=== PATIENT | male | born 1965 | race Caucasian/White ===

== ENCOUNTER 2018-06-02 14:55 | Emergency (ER) | payer OTHER, SELFPAY ==
[2018-06-02 15:00] VITALS: BP 154/81; PULSE 85; RESP 20; TEMP 36.8; O2SAT 94
--- NOTE | 2018-06-02 15:01 | DI.RPTCT_ITS ---
SYMPTOM/DIAGNOSIS: TRAUMA TO RIGHT SUPERIOR ASPECT OF HEAD NONCONTRAST HEAD CT: No intracranial hemorrhage or skull fracture is seen. There is a large laceration in the soft tissues of the right frontal scalp. No foreign body is identified. The ventricles are normal in size. The visualized portions of the sinuses show mild mucosal thickening. Mastoid air cells appear clear. IMPRESSION: Large right frontal scalp laceration. No skull fracture or acute intracranial abnormality. CT CERVICAL SPINE: There is no evidence of fracture. There are degenerative changes of the facet joints at C-2,3 on the left and C7- T1 on the right. There are degenerative disc changes at C5-6 and C6-7. There is slight reversal of the normal cervical lordosis at these levels related to degenerative change. IMPRESSION: Degenerative changes. No acute abnormality.
--- NOTE | 2018-06-02 15:21 | ED.GENADUL ---
Disposition Clinical Impression: Traumatic injury of head, Laceration of head Disposition: HOME Condition: Stable Instructions: Laceration (ED), Head Injury (ED) Additional Instructions: Return immediately for any severe headaches, neurological changes, any signs of wound infection. Otherwise keep wound clean and dry and return in 7 days to the emergency department for suture removal otherwise keep your appointment later this week with your primary care provider for reassessment. Prescriptions: Amoxicillin 500 mg PO Q8H #9 capsule Referrals: [facility] Emergency Dept. [Outside] - 1 week (Return to emergency department 7 days for suture removal) [facility] [Outside] (Keep your appointment as scheduled for later this week) Medical Decision Making - Radiology Data Radiology results: report reviewed, image reviewed - Medical Decision Making Patient presenting to the emergency department for blunt trauma to the right superior aspect of the scalp after a 4-5 cm tree limb struck him in the head. Patient has significant amount of bleeding to the scalp but denies any neck pain, patient is not intoxicated and denies any EtOH. Due to significant size and mechanism injury do feel the patient needs head and C-spine CT imaging. Bleeding is controlled at this time but significant amount of blood is noted to patient's face and shirt. Physical exam is unremarkable for any cervical spinal tenderness, or other traumatic physical exam findings. Patient is otherwise stable. After review of radiological imaging and radiologist interpretation patient gave verbal consent for wound closure. Please see closure note. Wound was explored to base in bloodless field and shows a intact galea. There was mild wound revision performed. Wound was closed with well approximation of edges. Sewaren were mostly used but in one area of irregularity I did use Vicryl for wound closure. Patient encouraged to return for any new or worsening symptoms otherwise to return in 7 days for removal of bhavani. Due to some contamination patient was placed on antibiotics for prophylactic coverage. After discussion of diagnosis and plan of care with patient patient agreed and stated no further needs, questions, or concerns at this time. History of Present Illness - General Chief complaint: Trauma Stated complaint: HEAD INJURY Time Seen by Provider: 06/02/18 14:57 Source: patient, RN notes reviewed Mode of arrival: ambulatory Limitations: no limitations - History of Present Illness Initial comments: Patient reports approximately 20 minutes prior to arrival he was cutting down a tree and the branch came around its and swung and hit him on the top of the head. He states that it was approximately 4-5 inches in diameter. He is coming in because he has significant laceration of the top of his head but he states a moderate headache, and some nausea but he denies any loss of consciousness, neck pain, syncope, neurological deficit. Onset/Timin -: minutes(s) Location: head Severity scale (1-10): 6 Quality: aching Consistency: constant Improves with: none Worsens with: none Treatments Prior to Arrival: none - Related Data Bupropion HCl [Bupropion Xl] 300 mg PO DAILY tab-cap 03/26/18 Cholecalciferol (Vitamin D3) [Vitamin D3] 1,000 unit PO DAILY 03/26/18 Clonidine HCl 0.1 mg PO BID tab-cap 03/26/18 Esomeprazole Magnesium 40 mg PO DAILY 03/26/18 GlipiZIDE [Glucotrol] 5 mg PO DAILY tab-cap 03/26/18 Hydrophilic Cream [Kerodex 71] 113 gm TP 03/26/18 Insulin Glargine [Lantus Solostar] DAILY 03/26/18 Levothyroxine [Levothroid] 0.15 mcg PO 03/26/18 Loratadine [Claritin] 10 mg PO DAILY tab-cap 03/26/18 Metformin HCl 1,000 mg PO BID tab-cap 03/26/18 Naproxen 500 mg PO BID tab-cap 03/26/18 Oxycodone HCl 5 mg PO BID tab-cap 03/26/18 Prazosin HCl 8 mg PO DAILY 03/26/18 Pregabalin [Lyrica] 50 mg PO DAILY 03/26/18 Sertraline HCl 50 mg PO DAILY tab-cap 03/26/18 Tiotropium [Spiriva Handihaler] 18 mcg IH DAILY tab-cap 03/26/18 Zolpidem [Ambien] 5 mg PO DAILY 03/26/18 Amoxicillin 500 mg PO Q8H #9 capsule 06/02/18 Allergies Allergy/AdvReac Type Severity Reaction Status Date / Time adhesive tape Allergy Unknown Unverified 04/10/18 12:52 Review of Systems Constitutional: denies: chills, fever Eyes: denies: eye pain, eye discharge ENT: denies: ear pain, epistaxis Respiratory: denies: cough, shortness of breath Cardiovascular: denies: chest pain, palpitations, syncope Gastrointestinal: nausea. denies: vomiting Musculoskeletal: denies: back pain Neurological: as per HPI, headache. denies: weakness, numbness, paresthesias, confusion, abnormal gait, vertigo Past Medical History - Past Medical History Medical history: diabetes, hypertension Degenerative cervical disease, liver disease, restless leg syndrome, sleep apnea Surgical history: other (Left testicle removal, dental surgeries) - Social History Smoking status: current everyday smoker Alcohol use: none. denies: heavy Drug use: none Living Situation: lives with family General Exam - General Limitations: no limitations General appearance: alert, in no apparent distress - Expanded Head Exam No standard instances Head exam: Present: laceration (Patient has a significant 12 cm laceration to the frontal and mostly on the parietal aspect of the right side of the scalp. No obvious skull depression or crepitus is noted. ). Absent: hematoma, racoon eyes, wyatt's sign, general tenderness, tenderness of temporal artery, CSF rhinorrhea, CSF otorrhea - Eye Eye exam: Present: normal apperance, PERRL, EOMI. Absent: scleral icterus, conjunctival injection, nystagmus, periorbital swelling, periorbital tenderness Pupils: Present: normal accommodation - ENT ENT exam: Present: normal exam, normal orophraynx, mucous membranes moist, TM's normal bilaterally, normal external ear exam - Neck Neck exam: Present: normal inspection, full ROM. Absent: tenderness, meningismus - Respiratory Respiratory exam: Present: normal lung sounds bilaterally. Absent: respiratory distress, wheezes, rales, rhonchi, stridor, chest wall tenderness, decreased breath sounds - Cardiovascular Cardiovascular Exam: Present: regular rate, normal rhythm, normal heart sounds - Back Exam Back exam: Absent: vertebral tenderness - Neurological Exam Neurological exam: Present: alert, oriented X3, CN II-XII intact, normal gait. Absent: altered, motor sensory deficit - Skin Skin exam: Present: warm, dry Course Vital Signs - 24 hr 06/02/18 15:00 Temperature 36.8 C Pulse 85 Respiratory 20 Rate Blood Pressure 154/81 Pulse Oximetry 94 L Procedures - Laceration Repair Copious Irrigation performed: Yes Laceration Length (cm): 13 Laceration Depth: Deep Bleeding Type/Amount: Moderate, Bleeding Controlled Complexity: Simple Anesthetic: Lidocaine 1%, With Epi Material: Vicryl Suture Size: 4-0 Suture Number: 3 (12 bhavani also used for wound closure)
--- NOTE | 2018-06-02 16:48 | DI.VRAD_ITS ---
EXAM: CT Head Without Intravenous Contrast CLINICAL HISTORY: 52 years old, male; Signs and symptoms; Other: Trauma to rt. Superior aspect of head; Patient HX: Tree fell on individual's head TECHNIQUE: Axial computed tomography images of the head/brain without intravenous contrast. All CT scans at this facility use at least one of these dose optimization techniques: automated exposure control; mA and/or kV adjustment per patient size (includes targeted exams where dose is matched to clinical indication); or iterative reconstruction. Coronal and sagittal reformatted images were created and reviewed. COMPARISON: No relevant prior studies available. FINDINGS: Brain: Unremarkable. No hemorrhage. No significant white matter disease. No edema. Ventricles: Unremarkable. No ventriculomegaly. Bones/joints: Unremarkable. No acute fracture. Soft tissues: Right frontal scalp laceration. Sinuses: Mild mucosal thickening in the ethmoid sinuses and left sphenoid sinus. No sinus fluid level. Mastoid air cells: Unremarkable as visualized. No mastoid effusion. IMPRESSION: 1. No acute intracranial abnormality. 2. Right frontal scalp laceration. EXAM: CT Cervical Spine Without Intravenous Contrast CLINICAL HISTORY: 52 years old, male; Signs and symptoms; Other: Trauma to rt. Superior aspect of head; Patient HX: Tree fell on individual's head TECHNIQUE: Axial computed tomography images of the cervical spine without intravenous contrast. All CT scans at this facility use at least one of these dose optimization techniques: automated exposure control; mA and/or kV adjustment per patient size (includes targeted exams where dose is matched to clinical indication); or iterative reconstruction. Coronal and sagittal reformatted images were created and reviewed. COMPARISON: MRI - BRAIN W/WO CONTRAST 2011-09-28 18:37 FINDINGS: Vertebrae: Degenerative disc disease and facet arthrosis throughout the cervical spine. Loss of normal cervical lordosis, likely due to splinting. Minimal anterolisthesis of C2 and minimal retrolisthesis of C5, likely degenerative. No fracture is identified. Discs/spinal canal/neural foramina: Inflammatory appearing facet arthrosis and at C2-C3 on the left and C7-T1 on the right. Soft tissues: Unremarkable. Lung apices: Unremarkable as visualized. IMPRESSION: 1. No fracture. 2. Degenerative spondylosis of the cervical spine with probable inflammatory facet arthrosis at C2-C3 on the left and C7-T1 on the right. Dictated and Authenticated by: Sen Christiansen MD. Ordering:SHO SINGH MD
[2018-06-02] MEDS: Amoxicillin 500 MG CAP PO (17:54)
== END 2018-06-02 17:54 | disposition home or self-care (01) ==
PROVIDERS: Emergency Provider Emergency Medicine; PCP Nurse Practitioner
DX: S09.90XA Unspecified injury of head, initial encounter (principal); S01.01XA Laceration without foreign body of scalp, initial encounter; W20.8XXA Other cause of strike by thrown, projected or falling object, initial encounter; Y93.H2 Activity, gardening and landscaping; I10 Essential (primary) hypertension; E11.9 Type 2 diabetes mellitus without complications; Z79.4 Long term (current) use of insulin
CPT/HCPCS: 12005; 90471; 99284; 70450; 72125

== ENCOUNTER 2018-06-09 07:58 | Emergency (ER) | payer OTHER, SELFPAY ==
[2018-06-09 08:07] VITALS: BP 137/77; PULSE 69; RESP 15; TEMP 36.6; O2SAT 99
--- NOTE | 2018-06-09 08:34 | ED.GENADUL ---
Disposition Clinical Impression: Removal of bhavani Disposition: HOME Condition: Improving Instructions: Stitches Removal (ED) Additional Instructions: Please keep wound protected. Please follow-up with your primary care physician. Return to the emergency department immediately for any worsening or new concerning symptoms. Referrals: Marsha Clifton NP [Primary Care Provider] - Medical Decision Making - Medical Decision Making 52-year-old male here 7 days after laceration to scalp requiring primary closure. Wound healing well with no signs of infection. 12 bhavani and 2 absorbable sutures removed by me without complication. Patient advised to keep his wound protected. History of Present Illness - General Chief complaint: SutureRem Stated complaint: SUTURE REMOVAL Time Seen by Provider: 06/09/18 08:25 Source: patient, RN notes reviewed Mode of arrival: ambulatory Limitations: no limitations - History of Present Illness Initial comments: 52-year-old male who sustained laceration to his scalp 7 days ago, was seen here in the emergency department and had primary closure performed with absorbable sutures and bhavani. Wound is been healing well. Patient has no concerns. No rash or fever. Patient is here requesting suture removal. - Related Data Bupropion HCl [Bupropion Xl] 300 mg PO DAILY tab-cap 03/26/18 Cholecalciferol (Vitamin D3) [Vitamin D3] 1,000 unit PO DAILY 03/26/18 Clonidine HCl 0.1 mg PO BID tab-cap 03/26/18 Esomeprazole Magnesium 40 mg PO DAILY 03/26/18 GlipiZIDE [Glucotrol] 5 mg PO DAILY tab-cap 03/26/18 Hydrophilic Cream [Kerodex 71] 113 gm TP 03/26/18 Insulin Glargine [Lantus Solostar] DAILY 03/26/18 Levothyroxine [Levothroid] 0.15 mcg PO DAILY 03/26/18 Loratadine [Claritin] 10 mg PO DAILY tab-cap 03/26/18 Metformin HCl 1,000 mg PO BID tab-cap 03/26/18 Naproxen 500 mg PO BID tab-cap 03/26/18 Oxycodone HCl 5 mg PO BID tab-cap 03/26/18 Prazosin HCl 8 mg PO DAILY 03/26/18 Pregabalin [Lyrica] 50 mg PO DAILY 03/26/18 Sertraline HCl 50 mg PO DAILY tab-cap 03/26/18 Tiotropium [Spiriva Handihaler] 18 mcg IH DAILY tab-cap 03/26/18 Zolpidem [Ambien] 5 mg PO DAILY 03/26/18 Amoxicillin 500 mg PO Q8H #9 capsule 06/02/18 Allergies Allergy/AdvReac Type Severity Reaction Status Date / Time adhesive tape Allergy Unknown Unverified 04/10/18 12:52 Review of Systems Constitutional: denies: chills, fever Skin: as per HPI Past Medical History - Past Medical History Medical history: diabetes, hypertension Degenerative cervical disease, liver disease, restless leg syndrome, sleep apnea Surgical history: other (Left testicle removal, dental surgeries) - Social History Alcohol use: none. denies: heavy Drug use: none General Exam - General Limitations: no limitations General appearance: alert, in no apparent distress - Head Head exam: Present: other (Midline scalp wound with intact bhavani, healing well with granulation tissue, no dehiscence, no erythema, swelling or discharge) - Skin Skin exam: Present: warm, dry, intact, other (As noted above) Course Vital Signs - 24 hr 06/09/18 08:07 Temperature 36.6 C Pulse 69 Respiratory 15 Rate Blood Pressure 137/77 Pulse Oximetry 99
== END 2018-06-09 08:45 | disposition home or self-care (01) ==
PROVIDERS: Emergency Provider Student in an Organized Health Care Education/Training Program; PCP Nurse Practitioner
DX: S01.01XD Laceration without foreign body of scalp, subsequent encounter (principal); W20.8XXD Other cause of strike by thrown, projected or falling object, subsequent encounter; Z48.02 Encounter for removal of sutures

== ENCOUNTER 2024-06-14 18:27 | Emergency (ER) | payer OTHER, SELFPAY ==
[2024-06-14 18:29] VITALS: BP 124/82; PULSE 88; RESP 12; TEMP 36.6; O2SAT 93
--- NOTE | 2024-06-14 18:53 | W.ED.GENAD ---
Discharge Plan Disposition Patient Disposition: Home Condition: Stable Discharge Details Chief Complaint: GenMedical Clinical Impression: COVID Primary Care Provider: Feli,Local ED Provider: Willie Solomon Home Meds and New Rx's Prescriptions: No Action clonidine HCl 0.1 MG tablet 0.1 mg PO BID Rx Instructions: 03/26/18 [facility] levothyroxine 25 MCG tablet 0.15 mcg PO DAILY Rx Instructions: 03/26/18 [facility] metformin 1,000 MG tablet 1,000 mg PO BID Rx Instructions: 03/26/18 [facility] esomeprazole magnesium 40 MG capsule,delayed release(DR/EC) 40 mg PO DAILY Rx Instructions: 03/26/18 [facility] zolpidem 5 MG tablet 5 mg PO DAILY Rx Instructions: 03/26/18 [facility]. May take 2 tabs if needed. sertraline 50 MG tablet 50 mg PO DAILY Rx Instructions: 03/26/18 [facility] loratadine 10 MG tablet 10 mg PO DAILY Rx Instructions: 03/26/18 [facility] prazosin 2 MG capsule 8 mg PO DAILY Rx Instructions: 03/26/18 [facility] naproxen 500 MG tablet 500 mg PO BID Rx Instructions: 03/26/18 [facility]. bupropion HCl 300 MG tablet extended release 24 hr 300 mg PO DAILY Rx Instructions: 03/26/18 [facility] Kerodex-71 Wet 113 GM cream 113 g Topical Rx Instructions: 03/26/18 [facility] tiotropium bromide [Spiriva with HandiHaler] 18 MCG capsule, w/inhalation device 18 mcg Inhalation DAILY Rx Instructions: 03/26/18 [facility] insulin glargine [Lantus Solostar U-100 Insulin] 100 UNIT/1 ML insulin pen 18 unit subcut BID Rx Instructions: 03/26/18 [facility]. 60 units Discharge Instructions Instructions: COVID-19 ED Additional Instructions: Please well with your primary care physician. Please return to the emergency department for any worsening symptoms HPI General Date/Time Provider Initiated Documentation: 06/14/24 18:47. HPI Narrative: 58-year-old male with stage III lung cancer has not started chemotherapy or radiation yet. Presents after coming contact with a COVID-positive individual, now having bodyaches. Denies shortness of breath nausea vomiting fevers chills or other systemic signs of illness. Requesting confirmatory test here at emergency department. Related Data Home Medications ?Medication ?Instructions ?Recorded ?Confirmed bupropion HCl 300 mg 24 hr tablet, 300 mg PO DAILY 03/26/18 06/14/24 extended release clonidine HCl 0.1 mg tablet 0.1 mg PO BID 03/26/18 06/14/24 esomeprazole magnesium 40 mg 40 mg PO DAILY 03/26/18 06/14/24 capsule,delayed release hydrophilic cream (Kerodex-71 Wet 113 g topical 03/26/18 topical cream) insulin glargine 100 unit/mL (3 18 unit subcut BID 03/26/18 06/14/24 mL) subcutaneous pen (Lantus Solostar U-100 Insulin) levothyroxine 25 mcg tablet 0.15 mcg PO DAILY 03/26/18 06/14/24 loratadine 10 mg tablet 10 mg PO DAILY 03/26/18 06/14/24 metformin 1,000 mg tablet 1,000 mg PO BID 03/26/18 06/14/24 naproxen 500 mg tablet 500 mg PO BID 03/26/18 06/14/24 prazosin 2 mg capsule 8 mg PO DAILY 03/26/18 06/14/24 sertraline 50 mg tablet 50 mg PO DAILY 03/26/18 06/09/18 tiotropium bromide 18 mcg capsule 18 mcg inhalation DAILY 03/26/18 06/14/24 with inhalation device (Spiriva with HandiHaler) zolpidem 5 mg tablet 5 mg PO DAILY 03/26/18 06/14/24 Allergies Allergy/AdvReac Type Severity Reaction Status Date / Time adhesive tape Allergy Unknown Topical Unverified 06/14/24 18:34 Irritation [id number] Reductase AdvReac Severe Other (See Verified 06/14/24 18:34 Inhibitor Comment) General Stated Complaint: GenMedical WALKER: 3 Exam Narrative Exam Narrative: Alert oriented interactive resting comfortably no acute distress Moist mucous membrane speaking full sentences tolerating secretions Lungs clear bilaterally no wheezes rales or rhonchi Normal heart sounds no murmurs rubs or gallops Abdomen soft nontender nondistended All extremities without deficits Course Vital Signs Vital signs: Vital Signs Temperature 36.6 C 06/14/24 18:29 Pulse 88 06/14/24 18:29 Respiratory Rate 12 06/14/24 18:29 Blood Pressure 124/82 06/14/24 18:29 Pulse Oximetry 93 06/14/24 18:29 Temperature 36.6 C 06/14/24 18:29 Temperature Source Oral 06/14/24 18:29 Pulse 88 06/14/24 18:29 Respiratory Rate 12 06/14/24 18:29 Blood Pressure 124/82 06/14/24 18:29 Blood Pressure Position Sitting 06/14/24 18:29 Pulse Oximetry 93 06/14/24 18:29 Oxygen Delivery Method Room Air 06/14/24 18:29 Oxygen Flow Rate 0 06/14/24 18:29 Pain Level 7 06/14/24 18:29 Lab/Test Results Lab/Test Results: Laboratory Tests Range/Units 06/14/24 18:40 COVID-19 Source Cancelled SARS-CoV-2 (PCR) Cancelled Influenza Type A (PCR) Cancelled Influenza Type B (PCR) Cancelled RSV (PCR) Cancelled Medical Decision Making 58-year-old male history of stage III lung cancer awaiting initiation of chemotherapy and radiation, presents after being exposed to COVID-positive individual. Tested positive home COVID test, requesting confirmatory test here at emergency department. Patient has no systemic signs of illness, patient is afebrile nontoxic hemodynamically stable nontachypneic not hypoxic. Lungs are clear bilaterally without wheezes rales or rhonchi no nausea vomiting headache neck pain fevers or chills. Shared decision making regarding his well appearance despite feeling unwell high clinical special for COVID viral infection. At this juncture I do not feel strongly about obtaining invasive laboratory or imaging testing. Patient is comfortable with this. Will dose dexamethasone for anti-inflammatory purposes. Will give home care instructions and return precautions Quality:SDOH Health Related Social Needs: No Data to Display PFSH All Active Problems (Updated 06/14/24 @ 18:58 by Willie Solomon MD) COVID (Acute) Chronic obstructive pulmonary disease (Acute 03/05/18) Coronary arteriosclerosis (Acute 03/05/18) Depression, major, recurrent (Chronic 03/20/18) Erectile dysfunction (Acute 03/05/18) Gastroesophageal reflux disease (Acute 03/05/18) Hyperlipidemia (Acute 03/05/18) Hypothyroidism (Acute 03/05/18) Iron deficiency anemia (Acute 03/05/18) Moderate episode of recurrent major depressive disorder (Acute 03/05/18) Neck pain (Acute 03/05/18) Osteoarthritis (Acute 03/05/18) PTSD (post-traumatic stress disorder) (Acute 03/05/18) Type 2 diabetes mellitus with complication (Chronic 03/05/18) Family History Mother Diabetes Heart disease Myocardial infarction Father Essential hypertension Social History Smoking risk assessment performed?: No Do you feel safe in your relationship?: Yes
[2024-06-14 18:54] VITALS: BP 124/82; PULSE 88; RESP 12; TEMP 36.6; O2SAT 93
[2024-06-14] MEDS: Dexamethasone 10 MG/ML VIAL PO (19:03)
[2024-06-14 19:18] LABS: Influenza A PCR Negative (Negative); Influenza B PCR Negative (Negative); RSV PCR Negative (Negative)
[2024-06-14 19:21] LABS: COVID-19 PCR Positive (Negative); Source Nasopharynx
== END 2024-06-14 19:19 | disposition home or self-care (01) ==
LOC: ER 19:27
PROVIDERS: Emergency Provider Emergency Medicine
DX: U07.1 COVID-19 (principal); R05.1 Acute cough; R52 Pain, unspecified; Z85.118 Personal history of other malignant neoplasm of bronchus and lung
CPT/HCPCS: 87637; 99283; J1100

== ENCOUNTER 2025-05-27 13:35 | Emergency (ER) | payer OTHER, SELFPAY ==
[2025-05-27] VITALS (14 sets, daily range): BP systolic 119–153; BP diastolic 76–84; PULSE 71–90; RESP 16–25; TEMP 36.6; O2SAT 91–97
--- NOTE | 2025-05-27 13:30 | RT.EKG_ITS ---
APPROVED REPORT Exam: Resting ECG Reason for Exam: dizziness Patient Location: E HR:77 bpm ECG Measurements Heart Rate [address] 168 P 26 QRSd 100 QRS -5 QT 380 T 27 QTc 430 Conclusion Sinus rhythm...normal P axis, V-rate 60- 99 Low voltage, precordial leads...precordial leads <1.0mV
--- NOTE | 2025-05-27 14:04 | W.ED.GENAD ---
Discharge Plan Disposition Patient Disposition: Home Condition: Stable Discharge Details Clinical Impression: Light-headedness, Dehydration Primary Care Provider: [facility] Provider: Oracio Buenrostro Home Meds and New Rx's Prescriptions: Continued levothyroxine 25 MCG tablet 0.15 mcg PO DAILY Rx Instructions: 03/26/18 [facility] metformin 1,000 MG tablet 1,000 mg PO BID Rx Instructions: 03/26/18 [facility] esomeprazole magnesium 40 MG capsule,delayed release(DR/EC) 40 mg PO DAILY Rx Instructions: 03/26/18 [facility] zolpidem 5 MG tablet 5 mg PO DAILY Rx Instructions: 03/26/18 [facility]. May take 2 tabs if needed. sertraline 50 MG tablet 50 mg PO DAILY Rx Instructions: 03/26/18 [facility] loratadine 10 MG tablet 10 mg PO DAILY Rx Instructions: 03/26/18 [facility] prazosin 2 MG capsule 8 mg PO DAILY Rx Instructions: 03/26/18 [facility] naproxen 500 MG tablet 500 mg PO BID Rx Instructions: 03/26/18 [facility]. bupropion HCl 300 MG tablet extended release 24 hr 300 mg PO DAILY Rx Instructions: 03/26/18 [facility] tiotropium bromide [Spiriva with HandiHaler] 18 MCG capsule, w/inhalation device 18 mcg Inhalation DAILY Rx Instructions: 03/26/18 [facility] insulin glargine [Lantus Solostar U-100 Insulin] 100 UNIT/1 ML insulin pen 18 unit subcut BID Rx Instructions: 03/26/18 [facility]. 60 units Trulicity 0.75 mg/0.5 mL pen injector 0.75 mg subcut QWEEK No Action clonidine HCl 0.1 MG tablet 0.1 mg PO BID Rx Instructions: 03/26/18 [facility] Kerodex-71 Wet 113 GM cream 113 g Topical PRN Rx Instructions: 03/26/18 [facility] Discharge Instructions Additional Instructions: Your labs showed that you are dehydrated. Your Other lab work did not show concerning findings at this time. I would recommend following up with your primary care provider and oncologist. If you feel significantly more ill or have new symptoms such as high fevers or severe chest pain return to the emergency department for reevaluation. HPI General Date/Time Provider Initiated Documentation: 05/27/25 13:37. Limitations to Documentation: no limitations. Information obtained by: patient. History of Present Illness 59 year old M presents to the emergency department with the chief complaint of lightheaded, described as moderate, Patient started experiencing this day(s) (2) and it has been constant and intermittent. Rest improves symptom(s), Movement worsens symptoms . Patient notes no other symptoms.. Patient did receive the following treatments prior to arrival, none Related Data Home Medications ?Medication ?Instructions ?Recorded ?Confirmed bupropion HCl 300 mg 24 hr tablet, 300 mg PO DAILY 03/26/18 05/27/25 extended release clonidine HCl 0.1 mg tablet 0.1 mg PO BID 03/26/18 05/27/25 esomeprazole magnesium 40 mg 40 mg PO DAILY 03/26/18 05/27/25 capsule,delayed release hydrophilic cream (Kerodex-71 Wet 113 g topical PRN 03/26/18 05/27/25 topical cream) insulin glargine 100 unit/mL (3 18 unit subcut BID 03/26/18 05/27/25 mL) subcutaneous pen (Lantus Solostar U-100 Insulin) levothyroxine 25 mcg tablet 0.15 mcg PO DAILY 03/26/18 05/27/25 loratadine 10 mg tablet 10 mg PO DAILY 03/26/18 05/27/25 metformin 1,000 mg tablet 1,000 mg PO BID 03/26/18 05/27/25 naproxen 500 mg tablet 500 mg PO BID 03/26/18 05/27/25 prazosin 2 mg capsule 8 mg PO DAILY 03/26/18 05/27/25 sertraline 50 mg tablet 50 mg PO DAILY 03/26/18 05/27/25 tiotropium bromide 18 mcg capsule 18 mcg inhalation DAILY 03/26/18 05/27/25 with inhalation device (Spiriva with HandiHaler) zolpidem 5 mg tablet 5 mg PO DAILY 03/26/18 05/27/25 dulaglutide 0.75 mg/0.5 mL 0.75 mg subcut QWEEK 05/27/25 05/27/25 subcutaneous pen injector (Trulicity) Allergies Allergy/AdvReac Type Severity Reaction Status Date / Time adhesive tape Allergy Unknown Topical Unverified 05/27/25 13:49 Irritation [id number] Reductase AdvReac Severe Other (See Verified 05/27/25 13:49 Inhibitor Comment) General Stated Complaint: Dizzy/Sync WALKER: 3 Review of Systems All systems reviewed & are unremarkable except as noted in HPI and below Constitutional Constitutional: Denies chills, Denies fever(s) and Denies weakness Cardiovascular Cardiovascular: Denies chest pain, Reports lightheadedness and Reports dyspnea Respiratory Respiratory: Denies cough and Reports dyspnea Gastrointestinal Gastrointestinal: Denies abdominal pain, Denies nausea and Denies vomiting Neurologic Neurologic: Denies weakness Exam Const General: no acute distress Orientation: alert HENMT Head: normal to inspection Ears: external ears normal General nose exam: external nose normal Mouth: moist mucous membranes Eyes General: appearance normal, both eyes and all related structures Neck Neck: normal visual inspection Resp Effort & Inspection: normal respiratory effort and able to speak in complete sentences Auscultation: clear to auscultation bilaterally Cardio Jugular venous pressure: no JVD Rate: regular rate Heart Sounds: no murmurs GI Palpation: soft and nontender Skin General skin exam: no rashes or lesions noted Neuro General: patient alert and patient oriented x3 Extrem General: normal to inspection Psych Mental Status: mental status grossly normal Course Vital Signs Vital signs: Vital Signs Temperature 36.6 C 05/27/25 13:42 Pulse 90 05/27/25 13:42 Respiratory Rate 18 05/27/25 13:42 Blood Pressure 119/76 05/27/25 13:42 Pulse Oximetry 97 05/27/25 13:42 Temperature 36.6 C 05/27/25 13:42 Temperature Source Oral 05/27/25 13:42 Pulse 90 05/27/25 13:42 Respiratory Rate 18 05/27/25 13:42 Blood Pressure 119/76 05/27/25 13:42 Pulse Oximetry 97 05/27/25 13:42 Oxygen Delivery Method Room Air 05/27/25 13:42 Oxygen Flow Rate 0 05/27/25 13:42 Medical Decision Making 59-year-old male who states he is on immunotherapy for small cell lung cancer which he gets in [place] where he lives and is up here working on a house he is trying to sell comes in with several days a intermittent lightheadedness. He denies any chest pain, chest pressure, fevers, chills, cough, he states he has some very mild shortness of breath. Denies any vomiting, no rashes. He is well-appearing speaking in full sentences. He has no hypoxia or tachycardia on exam. He has clear lung sounds, no JVD, no leg swelling or calf tenderness. Given lightheadedness and reported shortness of breath I will check a CBC, CMP troponins. He says he has had transfusions in the past so he could be anemic. He has no signs of DVT on exam and no hypoxia or tachycardia so I feel PE is less likely. Labs show creatinine 1.6 and BUN of 30, no recent labs to compare to but I suspect this is likely an MICHAEL with likely dehydration. He still appears well, will obtain a delta troponin. delta trop negative, patient feels well after getting IV fluids. He is stable for discharge and will follow-up with his PCP and oncologist, return precautions given Differential Diagnosis Differential Diagnosis: Anemia, electrolyte abnormality Lab Data Lab results reviewed: Yes I reviewed the patient's lab results. ECG Data Attestation: I personally reviewed and interpreted this ECG (s) as follows: Prior ECG tracings: not available for review Interpretation: sinus rate of 77 no stemi PFSH All Active Problems (Updated 05/27/25 @ 15:54 by Oracio Buenrostro MD) Dehydration (Acute) Light-headedness (Acute) COVID (Acute) Chronic obstructive pulmonary disease (Acute 03/05/18) Coronary arteriosclerosis (Acute 03/05/18) Depression, major, recurrent (Chronic 03/20/18) Erectile dysfunction (Acute 03/05/18) Gastroesophageal reflux disease (Acute 03/05/18) Hyperlipidemia (Acute 03/05/18) Hypothyroidism (Acute 03/05/18) Iron deficiency anemia (Acute 03/05/18) Moderate episode of recurrent major depressive disorder (Acute 03/05/18) Neck pain (Acute 03/05/18) Osteoarthritis (Acute 03/05/18) PTSD (post-traumatic stress disorder) (Acute 03/05/18) Type 2 diabetes mellitus with complication (Chronic 03/05/18) Family History Mother Diabetes Heart disease Myocardial infarction Father Essential hypertension Social History Smoking/Tobacco Use Status: Former Tobacco Use Smoking risk assessment performed?: Yes Alcohol Intake: former Drug use: Daily Substance use type: marijuana Details: edibles at nights to sleep Housing: house Do you feel safe at home: Yes Do you feel safe in your relationship?: Yes
[2025-05-27 14:30] LABS: BE (Venous) -2 mmol/L (-2-3); HCO3 (Venous) 23 mmol/L (23-28); O2 Sat (Venous) 75 %; TCO2 (Venous) 21 mmol/L (24-29); pCO2 (Venous) 39 mmHg (41-51); pO2 (Venous) 41 mmHg
[2025-05-27 14:32] LABS: Abs Immature Grans 0.06 10^3/uL (0.0-0.06); HCT 40.2 % (40.0-50.0); HGB 13.0 g/dL (13.5-17.5); Immature Grans % 0.8 %; MCH 28.1 pg (27.0-33.0); MCHC 32.3 % (32.0-36.0); MCV 87 fL (80-95); MPV 9.8 fL (8.0-11.0); Platelet Count 204 10^3/uL (130-400); RBC 4.63 10^6/uL (4.36-5.78); RDW 14.6 % (11.8-14.1); RDW-SD 46.6 fL; WBC 7.65 10^3/uL (4.4-10.8)
[2025-05-27 14:59] LABS: INR 1.1 (0.9-1.1); PTT Activated 25.8 sec (20.6-30.2); Prothrombin Time 10.7 sec (9.1-11.1)
[2025-05-27 15:08] LABS: ALT 25 U/L (16-63); AST 22 U/L (15-37); Albumin 4.5 g/dL (3.4-5.0); Alkaline Phosphatase 87 U/L (46-116); Anion Gap 10.6 mmol/L (3-11); BUN 32 mg/dL (7-18); Bilirubin, Total 0.6 mg/dL (0.2-1.0); CO2 25.4 mmol/L (21.0-32.0); Calcium 10.0 mg/dL (8.5-10.1); Chloride 103 mmol/L (98-107); Estimated GFR 48.72 (mL/min/1.73m2); Glucose 109 mg/dL (74-106); Magnesium 1.9 mg/dL (1.8-2.4); NT-proBNP 177 pg/mL (<300); Potassium 4.3 mmol/L (3.5-5.1); Sodium 139 mmol/L (136-145); TSH (W/Ref FT4) 2.26 uIU/mL (0.36-3.74); Total Protein 8.4 g/dL (6.4-8.2); Troponin I 7 ng/L (<or=76)
[2025-05-27 15:16] LABS: Glucose Negative (Negative)
[2025-05-27] MEDS: Normal Saline 1,000 ML 1000 ML IV (15:25)
[2025-05-27 15:26] LABS: C & S Indicated? No; WBC Negative HPF (0-5)
[2025-05-27 15:44] LABS: Troponin I 7 ng/L (<or=76)
--- NOTE | 2025-05-27 16:57 | NUR.NOTE ---
Patient forgot d/c instructions in room. I am mailing them to him. LENursing Note:
== END 2025-05-27 16:27 | disposition home or self-care (01) ==
PROVIDERS: Emergency Provider Emergency Medicine
DX: R42 Dizziness and giddiness (principal); E86.0 Dehydration; Z79.60 Long term (current) use of unspecified immunomodulators and immunosuppressants; Z85.118 Personal history of other malignant neoplasm of bronchus and lung
CPT/HCPCS: 36415; 36416; 80053; 82805; 82962; 93005; 96360; 99284; 81003; 81015; 83735; 83880; 84443; 84484; 85025; 85610; 85730; 93010; 99283